=== PATIENT | male | born 1985 | race African-American/Black ===

== ENCOUNTER 2018-07-29 00:33 | Emergency (ER) | payer SELFPAY, OTHER | END 2018-07-29 03:01 | disposition home or self-care (01) | LOC: FTE 00:33 | DX: S61.412A Laceration without foreign body of left hand, initial encounter (principal); W25.XXXA Contact with sharp glass, initial encounter; Y92.009 Unspecified place in unspecified non-institutional (private) residence as the place of occurrence of the external cause | CPT/HCPCS: 99283 ==